=== PATIENT | female | born 1985 | race Two or more races ===

== ENCOUNTER 2024-12-27 14:14 | Inpatient (IN) | payer MEDICAID, OTHER ==
[~2024-12-27] VITALS: Ht 157.5 cm; Wt 71.7 kg
--- NOTE | 2024-12-27 14:57 | ED.PDOC ---
General HPI Comments This is a 39 year old female presenting to the ED with chief complaint of flank pain. Patient reports that she has been experiencing worsening left flank pain for the past 2-3 weeks. Patient relays that it is a 10/10 pain and she is having an associated headache. Patient denies any dysuria, hematuria, abdominal pain, N/V/D, fever, or chills. Chief Complaint: Abdominal Pain Time Seen by MD: 14:54 Primary Care Provider: FÁTIMA Sutton notes: Nurses Notes, Medications, Allergies Allergies: Coded Allergies: NO KNOWN ALLERGIES (Unverified , 12/27/24) Information Source: Patient Mode of Arrival: Ambulatory Severity: Moderate Inability to void: None Timing: Weeks Duration: Since onset Prehospital treatment: None Onset: Spontaneous Symptoms: None History of: None Location: (L)Flank Modifying factors: None associated signs and symptoms: Flank Pain Past Medical History PAST MEDICAL HISTORY: Asthma, GERD Surgical History: Denies all surgeries Family History Family History: Reviewed,noncontributory to illness, Family hx of DM Social History Smoker: Non-Smoker Alcohol: Denies ETOH Use Drugs: Denies Drug Use Lives In: Home Constitutional: denies: chills, diaphoresis, fatigue, fever, malaise, sweats, weakness, others EENTM: denies: blurred vision, double vision, ear bleeding, ear discharge, ear drainage, ear pain, ear ringing, eye pain, eye redness, hearing loss, mouth pain, mouth swelling, nasal discharge, nose bleeding, nose congestion, nose pain, photophobia, tearing, throat pain, throat swelling, voice changes, others Respiratory: denies: cough, hemoptysis, orthopnea, SOB at rest, shortness of breath, SOB with excertion, stridor, wheezing, others Cardiovascular: denies: chest pain, dizzy spells, diaphoresis, Dyspnea on exertion, edema, irregular heart beat, left arm pain, lightheadedness, palpitations, PND, syncope, others Gastrointestinal: reports: abdominal pain; denies: abdomen distended, blood str eaked bowels, constipated, diarrhea, dysphagia, difficulty swallowing, hematemesis, melena, nausea, poor appetite, poor fluid intake, rectal bleeding, rectal pain, vomiting, others Neurological: reports: headache; denies: dizziness, fainting, left sided numbness, left sided weakness, numbness, paresthesia, pre-existing deficit, right sided numbness, right sided weakness, seizure, speech problems, tingling, tremors, weakness, others Musculoskeletal: denies: back pain, gout, joint pain, joint swelling, muscle pain, muscle stiffness, neck pain, others Integumetry: denies: bruises, change in color, change in hair/nails, dryness, laceration, lesions, lumps, rash, wounds, others Allergic/Immunocompromised: denies: Difficulty Healing, Frequent Infections, Hives, Itching, others Hematologic/Lymphatic: denies: anemia, blood clots, easy bleeding, easy bruising, swollen glands, others Endocrine: denies: excessive hunger, excessive sweating, excessive thirst, excessive urination, flushing, intolerance to cold, intolerance to heat, unexplained weight gain, unexplained weight loss, others Psychiatric: denies: anxiety, bipolar disorder, depression, hopeless, panic disorder, schizophrenia, sleepless, suicidal, others All Other Systems: Reviewed and Negative Physical Exam General Appearance: Moderate Distress HEENT: Normal ENT Inspection, Pharynx Normal, TMs Normal Neck: Full Range of Motion, Non-Tender, Normal, Normal Inspection Respiratory: Chest Non-Tender, Lungs Clear, No Accessory Muscle Use, No Respiratory Distress, Normal Breath Sounds Cardiovascular: No Edema, No JVD, No Murmur, No Gallop, Normal Peripheral Pulses, Regular Rate/Rhythm Breast Exam: Deferred Gastrointestinal: LLQ, No Organomegaly, No Pulsatile Mass, Normal Bowel Sounds, Soft, Tenderness Genitalia: Deferred Pelvic: Deferred Rectal: Deferred Extremities: No calf tenderness, Normal capillary refill, Normal inspection, Normal range of motion, Non-tender, No pedal edema Musculoskeletal : Apperance: Normal Neurologic: Alert, 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 Was a procedure done?: No Differential Diagnosis Kidney stone (Female): Musculoskeletal pain, Pancreatitis, Pyelonephritis, Urolithiasis X-Ray, Labs, Meds, VS Vital Signs Date Time Temp Pulse Resp B/P (MAP) Pulse Ox O2 Delivery O2 Flow Rate FiO2 12/27/24 14:26 98.1 86 20 120/64 (82) 98 98.1 Lab Test 12/27/24 15:02 12/27/24 15:00 Range/Units White Blood Count 6.4 4.4-10.8 10^3/uL Red Blood Count 4.90 4.0-5.20 10^6/uL Hemoglobin 13.4 12.2-16.2 g/dL Hematocrit 39.4 36.0-46.0 % Mean Corpuscular Volume 80.4 80.0-100.0 fL Mean Corpuscular Hemoglobin 27.4 L 28.0-32.0 pg Mean Corpuscular Hemoglobin Concent 34.1 32.0-36.0 g/dL Red Cell Distribution Width 13.2 11.8-14.3 % Platelet Count 299 140-450 10^3/uL Mean Platelet Volume 7.6 6.9-10.8 fL Neutrophils (%) (Auto) 65.7 37.0-80.0 % Lymphocytes (%) (Auto) 27.5 10.0-50.0 % Monocytes (%) (Auto) 4.9 0.0-12.0 % Eosinophils (%) (Auto) 1.6 0.0-7.0 % Basophils (%) (Auto) 0.3 0.0-2.0 % Neutrophils # (Auto) 4.2 1.6-8.6 10 ^3/uL Lymphocytes # (Auto) 1.8 0.4-5.4 10 ^3/uL Monocytes # (Auto) 0.3 0-1.3 10 ^3/uL Eosinophils # (Auto) 0.1 0-0.8 10 ^3/uL Basophils # (Auto) 0 0-0.2 10 ^3/uL Nucleated Red Blood Cells 0.0 % Sodium Level 142 136-145 mmol/L Potassium Level 4.0 3.5-5.1 mmol/L Chloride Level 109 H 98-107 mmol/L Carbon Dioxide Level 26 20-31 mmol/L Anion Gap 7 5-15 Blood Urea Nitrogen 11 9-23 mg/dL Creatinine 0.73 0.550-1.02 mg/dL Glomerular Filtration Rate Calc 108 >90 mL/min BUN/Creatinine Ratio 15.1 10.0-20.0 Serum Glucose 89 74-106 mg/dL Calcium Level 10.1 8.7-10.4 mg/dL Urine Color Yellow Yellow Urine Clarity Turbid H Clear Urine pH 5.5 5.0-9.0 Urine Specific [place] 1.028 1.001-1.035 Urine Protein Negative Negative Urine Ketones Negative Negative Urine Blood 2+ H Negative /uL Urine Nitrite Negative Negative Urine Bilirubin Negative Negative Urine Urobilinogen Normal Negative mg/dL Urine Leukocyte Esterase 2+ Negative /uL Urine RBC 4 0 - 4 /hpf Urine Microscopic WBC 11 H 0-5 /HPF Urine Squamous Epithelial Cells Few <5 /hpf Urine Bacteria Few H None Seen /hpf Urine Mucus Few None Seen Urine Glucose Normal Normal mg/dL Urine Test Negative The patient's CBC is within limits The chemistry panel is within limits Urine test positive for a significant UTI The test is negative The CAT scan of the abdomen pelvis shows IMPRESSION: 1. Acute diverticulitis in the mid descending colon. There is no pericolonic fluid collection or free air. HS:Y This time, the patient is being admitted to the hospitalist The patient was given Toradol 30 mg IV push for the pain The patient was also given morphine for the pain The patient was given Zofran 4 mg IV push for the nausea The patient is being started on Flagyl 500 mg IV piggyback The patient is being admitted at this time Images Reviewed?: Images reviewed and evaluated by me Time of 1ST Reevaluation: 16:18 Reevaluation 1ST: Unchanged Patient Education/Counseling: Diagnosis, Treatment, Prognosis Family Education/Counseling: No Family Present Additional Information Reviewed patient's previous visit(s): None The following tests were ordered, and results were reviewed by me: CT Abd/Pel, UA, Preg urine, CBC, BMP Additional information was gathered from interviewing the following independent historian: NONE I reviewed and agreed with the following test results read by other provider: CT Abd/Pel I discussed treatments and results with medical personnel and: Patient Comprehensive systems review obtained and negative except for what is stated in the HPI. Departure 1 Departure Time of Disposition: 16:17 Impression: Primary Impression: Intractable abdominal pain Additional Impressions: UTI (urinary tract infection) Qualified Codes: N30.01 - Acute cystitis with hematuria Acute diverticulitis Disposition: ADMITTED INPATIENT Admit to: Med Surg Condition: Fair Critical Care Note Critical Care Time?: No Stability Stability form required: Yes Unstable for transfer: ED Physician Assesment (Clinical assesment) Heart Score Heart Score: Heart Score Response (Comments) Value History N/A 0 EKG N/A 0 Age N/A 0 Risk Factors N/A 0 Troponin N/A 0 Total 0 I personally scribed for JERE MYRICK MD ([email or web address]) on 12/27/24 at 14:57. E lectronically submitted by Shahid Cartagena ([email or web address]). JERE MYRICK MD Dec 27, 2024 14:57
[2024-12-27 15:13] LABS: Urine Bacteria FEW /hpf (None Seen); Urine Blood 2+ /uL (Negative); Urine Clarity Turbid (Clear); Urine Color Yellow (Yellow); Urine Mucus FEW (None Seen); Urine Protein, UAD Negative (Negative); Urine Specific Gravity 1.028 (1.001-1.035); Urine Squamous Epithelial Cell FEW /hpf (<5); Urine Urobilinogen Normal (Negative); Urine WBC 11 /HPF (0-5); Urine pH 5.5 (5.0-9.0)
[2024-12-27 15:18] LABS: Basophils # (auto) 0 10 ^3/uL (0-0.2); Basophils % (auto) 0.3 % (0.0-2.0); Eosinophils # (auto) 0.1 10 ^3/uL (0-0.8); Eosinophils % (auto) 1.6 % (0.0-7.0); Hematocrit 39.4 % (36.0-46.0); Hemoglobin 13.4 g/dL (12.2-16.2); Lymphocytes # (auto) 1.8 10 ^3/uL (0.4-5.4); Lymphocytes % (auto) 27.5 % (10.0-50.0); Mean Corpuscular Hemoglobin 27.4 pg (28.0-32.0); Mean Corpuscular Hgb Conc. 34.1 g/dL (32.0-36.0); Mean Corpuscular Volume 80.4 fL (80.0-100.0); Monocytes # (auto) 0.3 10 ^3/uL (0-1.3); Monocytes % (auto) 4.9 % (0.0-12.0); Neutrophils # (auto) 4.2 10 ^3/uL (1.6-8.6); Neutrophils % (auto) 65.7 % (37.0-80.0); Platelet Count (auto) 299 10^3/uL (140-450); Red Cell Distribution Width 13.2 % (11.8-14.3); White Blood Cell 6.4 10^3/uL (4.4-10.8)
[2024-12-27 15:27] LABS: Sodium 142 mmol/L (136-145)
[2024-12-27 15:28] LABS: Anion Gap 7 (5-15); Calcium 10.1 mg/dL (8.7-10.4); Carbon Dioxide 26 mmol/L (20-31)
[2024-12-27 15:33] LABS: BUN/Creatinine Ratio 15.1 (10.0-20.0); Blood Urea Nitrogen 11 mg/dL (9-23); Glucose 89 mg/dL (74-106)
[2024-12-27 15:34] LABS: Chloride 109 mmol/L (98-107)
--- NOTE | 2024-12-27 15:56 | DVH ---
CT ABDOMEN AND PELVIS WITHOUT CONTRAST CLINICAL HISTORY: Left flank pain TECHNIQUE: Multiple contiguous axial images of the abdomen and pelvis without intravenous contrast. T he images were reformatted degenerate coronal and sagittal reconstructions. All CT scans at this medical facility are performed using dose modulation techniques as appropriate t o a performed exam including the following:Automated exposure control was utilized; adjustment of the MA and/or KV according to patient size; and use of iterative reconstruction technique. Radiation Dose Information: CT Dose: CTDI volume is 6 mGy. Dose-length product is 337 mGy*cm Comparison: None FINDINGS: Evaluation of the abdomen and pelvis is limited without intravenous contrast. There is no evidence of nephrolithiasis or hydronephrosis. There is no evidence of a ureteral calculu s or hydroureter. The liver, gallbladder, pancreas, adrenal glands, and spleen appear within normal limits. There is no gross evidence of abdominal lymphadenopathy. There is no free fluid or free air. The stomach grossly appears unremarkable. The small and large bowel loops demonstrate normal caliber and distribution. A normal appearing appendix is seen in the right lower quadrant abdomen. There are multiple diverticula in the distal colon. There is mild fat stranding along the mid descending colon compatible with acute diverticulitis. There is no pericolonic fluid collection or free air. The abdominal aorta and IVC appear within normal limits. The bladder grossly appears unremarkable for the degree of distention. Pelvic organ appears within no rmal limits. There is no gross evidence of a pelvic mass. There is small amount of free fluid in the pelvis, probably physiologic. Lung bases are clear. There is no acute osseous abnormality. IMPRESSION: 1. Acute diverticulitis in the mid descending colon. There is no pericolonic fluid collection or free air. HS:Y
[2024-12-27] MEDS: SODIUM CHLORIDE 0.9% 1,000 ML IVB ONE (16:36)
[2024-12-27] MEDS: MORPHINE SULFATE 4 MG/ML SYR/VIAL IV ONE (16:36)
[2024-12-27] MEDS: ONDANSETRON HCL 4 MG/2 ML VIAL IV ONE ×2 (16:37→18:23)
[2024-12-27] MEDS: metroNIDAZOLE 500MG/100ML 100 ML IV ONE (16:37)
[2024-12-27] MEDS: KETOROLAC TROMETH 30 MG/ML 1ML VIAL IV ONE (16:37)
[2024-12-27] MEDS: HYDROmorphone HCL 2 MG/ML VL/or syr IV ONE (18:25)
[2024-12-27] MEDS: ACETAMINOPHEN 325 MG TAB PO ONE (22:15)
[2024-12-27 22:39] LABS: Triglycerides 115 mg/dL (< 150)
[2024-12-27 22:40] LABS: Amphetamine Screen, Urine Neg (NEGATIVE); Barbiturate Scree,Urine Neg (NEGATIVE); Benzodiazephine Screen, Urine Neg (NEGATIVE); Cannabinoid Screen, Urine Neg (NEGATIVE); Cocaine Screen, Urine Neg (NEGATIVE); Opiate Scree,Urine Neg (NEGATIVE); Phencyclidine Screen, Urine Neg (NEGATIVE)
[2024-12-27 22:41] LABS: Cholesterol 200 mg/dL (< 200); HDL Cholesterol 45 mg/dL (40-59)
[2024-12-27 22:51] LABS: LDL Cholesterol 136 mg/dL (< 100)
--- NOTE | 2024-12-27 23:29 | DVH ---
INDICATION: R/O ectopic or any problem with ovaries TECHNIQUE: Multiple real-time grayscale transabdominal and transvaginal sonographic images along with color and duplex Doppler of the uterus and ovaries were obtained. COMPARISON: None FINDINGS: The uterus measures 7.7 x 4.9 x 3.9 cm. The endometrial stripe measures 0.5 cm. Multiple ut erine fibroids are identified, the largest of which measures 1.5 x 1.3 x 1.1 cm. Moderate pelvic cul-de-sac free fluid. Right ovary measures 2.8 x 2.1 x 2.0 cm with normal Doppler color flow. Anechoic cystic structure linsey sures 1.4 x 1.1 x 1.0 cm. Left ovary measures 3.0 x 2.1 x 1.9 cm with normal Doppler color flow. Anechoic cystic structure linsey sures 1.0 x 0.8 x 0.8 cm. IMPRESSION: 1. Multiple uterine fibroids. 2. Pelvic cul-de-sac free fluid. 3. Simple appearing bilateral ovarian cysts.
[2024-12-28] VITALS (7 sets, daily range): BP systolic 82–113; BP diastolic 51–81; PULSE 65–97; RESP 15–20; TEMP 97.8–98.4; O2SAT 97–99
--- NOTE | 2024-12-28 00:34 | DVHHPRES ---
History of Present Illness Resident Creating Document: LUIS ROSA History of Present Illness This is a 39-year-old female past medical history of asthma, GERD, uterine fibroids who presented to the ED with severe left lower quadrant abdominal tenderness. Patient stated the pain started three weeks ago but was tolerable in intensity and she thought that it was related to the menstrual periods. The patient stated that the pain progressively got worse associated with fever, nausea and vomiting with alternating diarrhea and constipation prompted the visit to the ED. the patient described the pain as a sharp stabbing pain located in the left lower quadrant rated as a 10/10 on the pain scale that occasionally radiates to the right lower quadrant. The patient denies chest pain, shortness of breath, lower extremity swelling, headache or any other symptoms. Upon admission, initial CBC and CMP was grossly unremarkable but urinalysis came back positive suggesting UTI. Beta human chorionic gonadotropin test came back negative. A CT scan of the abdomen showed findings consistent with acute diverticulitis of the mid descending colon with no fluid collection or free air. We will start the patient on IV ciprofloxacin and metronidazole as well as IV fluids and placing the patient NPO. We will admit the patient for further assessment and management. Past medical history: GERD, asthma, uterine fibroids Home Medications: None Surgical history: Denies Social history: Denies alcohol, drug or smoking Pulmonary: Asthma GI: GERD Past Surgical History: None Family History: None Smoke: No ALCOHOL: none Drugs: None Lives: with Family Domestic Violence: Neg Review of Systems Constitutional: Yes: Fever; No: Chills, Sweats, Weakness, Malaise, Other Eyes: No: Pain, Vision change, Conjunctivae inflammation, Eyelid inflammation, Other, Redness ENT: No: Ear pain, Ear discharge, Nose pain, Nose discharge, Nose congestion, Mouth pain, Mouth swelling, Throat pain, Throat swelling, Other Respiratory: No: Cough, Dry, Shortness of breath, SOB with excertion, Wheezing, Hemoptysis, Pleuritic Pain, Sputum, Wheezing, Other Cardiovascular: No: Chest Pain, Palpitations, Orthopnea, Paroxysmal Noc. Dyspnea, Edema, Lt Headedness, Other Gastrointestinal: Nausea, Vomiting, Abdominal Pain, Diarrhea, Constipation; No: Melena, Hematochezia, Other Genitourinary: No Dysuria, No Frequency, No Incontinence, No Hematuria, No Retention, No Other Musculoskeletal: No: other, neck pain, shoulder pain, arm pain, back pain, hand pain, leg pain, foot pain Skin: No: Rash, Lesions, Jaundice, Bruising, Other Neurological: No: Weakness, Numbness, Incoordination, Change in speech, Confusion, Seizures, Other Allergies: Coded Allergies: NO KNOWN ALLERGIES (Unverified , 12/27/24) Medications Current Medications Medications Dose Ordered Sig/Hood Route Start Time Stop Time Status Last Admin Dose Admin Sodium Chloride 1,000 ml @ 60 mls/hr [id number] IV 12/27/24 22:15 Acetaminophen 650 mg Q6HP PRN PO 12/27/24 22:15 Ciprofloxacin 200 ml @ 200 mls/hr Q12HR IV 12/27/24 22:15 Metronidazole 100 ml @ 100 mls/hr Q8HR IV 12/27/24 22:15 Exam Vital Signs Vital Signs Date Time Temp Pulse Resp B/P (MAP) Pulse Ox O2 Delivery O2 Flow Rate FiO2 12/27/24 22:00 97.4 70 18 116/68 (84) 98 97.4 12/27/24 16:37 Room Air General Appearance: Alert, Oriented X3, Cooperative, moderate distress HEENT: Atraumatic, PERRLA, EOMI, Mucous membr. moist/pink Respiratory: Clear to auscultation, Normal air movement Cardiovascular: Regular rate, Normal S1, Normal S2, No murmurs Abdominal: Normal bowel sounds, Soft, Other (There is significant left lower quadrant pain.) Extremities: No clubbing, No cyanosis, No edema, Normal pulses Skin: No rashes, No breakdown, No significant lesion Neuro: Normal gait, Normal speech, Strength at 5/5 X4 ext, Normal tone, Sensation intact, Cranial nerves 3-12 NL, Reflexes 2+ Psych/Mental Status: Mental status NL, Mood NL Labs/Xrays Labs Test 12/27/24 15:02 12/27/24 15:00 Range/Units White Blood Count 6.4 4.4-10.8 10^3/uL Red Blood Count 4.90 4.0-5.20 10^6/uL Hemoglobin 13.4 12.2-16.2 g/dL Hematocrit 39.4 36.0-46.0 % Mean Corpuscular Volume 80.4 80.0-100.0 fL Mean Corpuscular Hemoglobin 27.4 L 28.0-32.0 pg Mean Corpuscular Hemoglobin Concent 34.1 32.0-36.0 g/dL Red Cell Distribution Width 13.2 11.8-14.3 % Platelet Count 299 140-450 10^3/uL Mean Platelet Volume 7.6 6.9-10.8 fL Neutrophils (%) (Auto) 65.7 37.0-80.0 % Lymphocytes (%) (Auto) 27.5 10.0-50.0 % Monocytes (%) (Auto) 4.9 0.0-12.0 % Eosinophils (%) (Auto) 1.6 0.0-7.0 % Basophils (%) (Auto) 0.3 0.0-2.0 % Neutrophils # (Auto) 4.2 1.6-8.6 10 ^3/uL Lymphocytes # (Auto) 1.8 0.4-5.4 10 ^3/uL Monocytes # (Auto) 0.3 0-1.3 10 ^3/uL Eosinophils # (Auto) 0.1 0-0.8 10 ^3/uL Basophils # (Auto) 0 0-0.2 10 ^3/uL Nucleated Red Blood Cells 0.0 % Sodium Level 142 136-145 mmol/L Potassium Level 4.0 3.5-5.1 mmol/L Chloride Level 109 H 98-107 mmol/L Carbon Dioxide Level 26 20-31 mmol/L Anion Gap 7 5-15 Blood Urea Nitrogen 11 9-23 mg/dL Creatinine 0.73 0.550-1.02 mg/dL Glomerular Filtration Rate Calc 108 >90 mL/min BUN/Creatinine Ratio 15.1 10.0-20.0 Serum Glucose 89 74-106 mg/dL Hemoglobin A1c 5.0 <5.7 % A1C Calcium Level 10.1 8.7-10.4 mg/dL Triglycerides Level 115 < 150 mg/dL Cholesterol Level 200 H < 200 mg/dL LDL Cholesterol 136 H < 100 mg/dL HDL Cholesterol 45 40-59 mg/dL Beta HCG, Quantitative 0.5 L 1.5-4.2 mIU/mL Urine Color Yellow Yellow Urine Clarity Turbid H Clear Urine pH 5.5 5.0-9.0 Urine Specific [place] 1.028 1.001-1.035 Urine Protein Negative Negative Urine Ketones Negative Negative Urine Blood 2+ H Negative /uL Urine Nitrite Negative Negative Urine Bilirubin Negative Negative Urine Urobilinogen Normal Negative mg/dL Urine Leukocyte Esterase 2+ Negative /uL Urine RBC 4 0 - 4 /hpf Urine Microscopic WBC 11 H 0-5 /HPF Urine Squamous Epithelial Cells Few <5 /hpf Urine Bacteria Few H None Seen /hpf Urine Mucus Few None Seen Urine Glucose Normal Normal mg/dL Urine Test Negative Urine Opiates Screen Neg NEGATIVE Urine Fentanyl Screen Neg NEGATIVE Urine Barbiturates Screen Neg NEGATIVE Urine Phencyclidine Screen Neg NEGATIVE Urine Amphetamines Screen Neg NEGATIVE Urine Benzodiazepines Screen Neg NEGATIVE Urine Cocaine Screen Neg NEGATIVE Urine Cannabinoids Screen Neg NEGATIVE Assessment/Plan Assessment/Plan Assessment/plan Acute left lower quadrant tenderness likely due to acute diverticulitis Acute diverticulitis of the mid descending colon Ruled out ectopic UTI GERD Asthma, controlled History of uterine fibroids Plan -CT of the abdomen showed acute diverticulitis in the mid descending colon with no fluid collection or free air -start IV fluid bolus NS 0.9% 1 L and continue at 60 cc/hour -start IV ciprofloxacin -start IV metronidazole -place patient NPO -ketorolac and acetaminophen pain modulation Goals of care discussed with the patient at bedside for >35min, FULL CODE Plan discussed with Dr. Perry Plan discussed with: Patient My Orders Orders - LUIS ROSA Procedure Category Date Status Time Pelvic US 12/27/24 Resulted 22:01 Admit ADMIT 12/27/24 Transmitted 22:02 Code Status CODE 12/27/24 Transmitted 22:02 Vital Signs MONY 12/27/24 In Process 22:02 Review Orders With MONY 12/27/24 In Process Adm. 22:02 Maintain Bed Rest MONY 12/27/24 In Process 22:02 Npo (Nothing By DIET 12/28/24 Transmitted Mouth) Diet Breakfast Sodium Chloride 0.9% PHA 12/27/24 In Process 22:15 Acetaminophen Tablet PHA 12/27/24 In Process (Tylenol Tablet) 22:15 Notify Of Changes MONY 12/27/24 In Process From Base 22:02 Advance Directive MONY 12/27/24 In Process 22:02 Basic Metabolic Panel LAB 12/28/24 Verified 04:00 Complete Blood Count LAB 12/28/24 Verified 04:00 Patient Condition ORDERS 12/27/24 Transmitted 22:02 Allergies MONY 12/27/24 In Process 22:02 Ciprofloxacin PHA 12/27/24 In Process 400mg/200ml (Cipro Iv) 22:15 Metronidazole PHA 12/27/24 In Process 500mg/100ml (Flagyl 22:15 Transvaginal Us Non Ob US 12/27/24 Taken 23:15 Date of Service: Dec 27, 2024 Billing Provider: RAVI PERRY MD Common Visit Codes: 16176-YUYCYOT INP/OBS CARE (HIGH) Secondary Visit Codes: 12178-MQIWFBUI CARE PLAN 30 MINUTES LUIS ROSA RESIDENT Dec 28, 2024 00:34
[2024-12-28] MEDS: KETOROLAC TROMETH 30 MG/ML 1ML VIAL IV ONE (00:56)
[2024-12-28] MEDS: CIPROFLOXACIN 400MG/200ML 200 ML IV SCH (01:02)
[2024-12-28] MEDS: SODIUM CHLORIDE 0.9% 1,000 ML IV SCH ×2 (01:03→14:00)
[2024-12-28] MEDS: metroNIDAZOLE 500MG/100ML 100 ML IV SCH (02:24)
[2024-12-28] MEDS ORDERED: FLUT250M2 IN (02:38)
[2024-12-28 07:18] LABS: Basophils # (auto) 0 10 ^3/uL (0-0.2); Basophils % (auto) 0.1 % (0.0-2.0); Eosinophils # (auto) 0.2 10 ^3/uL (0-0.8); Eosinophils % (auto) 3.2 % (0.0-7.0); Hematocrit 34.8 % (36.0-46.0); Hemoglobin 11.9 g/dL (12.2-16.2); Lymphocytes % (auto) 33.5 % (10.0-50.0); Mean Corpuscular Hemoglobin 27.6 pg (28.0-32.0); Mean Corpuscular Hgb Conc. 34.2 g/dL (32.0-36.0); Mean Corpuscular Volume 80.6 fL (80.0-100.0); Monocytes # (auto) 0.5 10 ^3/uL (0-1.3); Monocytes % (auto) 7.7 % (0.0-12.0); Neutrophils # (auto) 3.4 10 ^3/uL (1.6-8.6); Neutrophils % (auto) 55.5 % (37.0-80.0); Nucleated Red Blood Cells % 0.1 %; Platelet Count (auto) 255 10^3/uL (140-450); Red Blood Cells 4.31 10^6/uL (4.0-5.20); Red Cell Distribution Width 13.1 % (11.8-14.3); White Blood Cell 6.1 10^3/uL (4.4-10.8)
[2024-12-28 07:29] LABS: Potassium 3.7 mmol/L (3.5-5.1); Sodium 143 mmol/L (136-145)
[2024-12-28 07:30] LABS: Anion Gap 11 (5-15); Calcium 9.4 mg/dL (8.7-10.4); Carbon Dioxide 24 mmol/L (20-31)
[2024-12-28 07:32] LABS: Chloride 108 mmol/L (98-107)
[2024-12-28 07:35] LABS: BUN/Creatinine Ratio 18.2 (10.0-20.0); Blood Urea Nitrogen 14 mg/dL (9-23); Glucose 83 mg/dL (74-106)
[2024-12-28] MEDS: SODIUM CHLORIDE 0.9% 1,000 ML IV ONE ×2 (08:30→10:45)
[2024-12-28] MEDS: PANTOPRAZOLE 40 MG/10 ML VIAL INJ IV ONE (11:00)
[2024-12-28 11:34] LABS: Hematocrit 33.2 % (36.0-46.0); Hemoglobin 11.2 g/dL (12.2-16.2)
[2024-12-28] MEDS ORDERED: MORPHINE SULFATE INJ 2 MG/ml SYRG IV PRN ×2 (12:45)
[2024-12-28] MEDS: ONDANSETRON HCL 4 MG/2 ML VIAL IV PRN (14:15)
[2024-12-28] MEDS ORDERED: MORPHINE SULFATE 4 MG/ML SYR/VIAL IV PRN (15:00)
[2024-12-28] MEDS: MORPHINE SULFATE 4 MG/ML SYR/VIAL IV PRN ×2 (15:06→22:09)
--- NOTE | 2024-12-28 16:15 | DVHPN2 ---
Subjective better Reviewed: Care Plan, H&P, Labs, Medications, Previous Orders, Radiology Changes from previous H/P or p: No Changes Objective Vitals Vital Signs Date Time Temp Pulse Resp B/P (MAP) Pulse Ox O2 Delivery O2 Flow Rate FiO2 12/28/24 15:06 72 18 106/76 12/28/24 13:00 98.1 99 98.1 12/28/24 02:15 Room Air* 0 21 Intake/Output Intake and Output 12/28/24 07:00 Intake Total 1500 ml Output Total 0 ml Balance 1500 ml Intake Oral 0 ml IV Total 1500 ml Output Urine Total 0 ml General Appearance: Alert, Oriented X3, Cooperative, No acute distress HEENT: Atraumatic Lungs: Clear to auscultation Cardiovascular: Regular rate Abdomen: Normal bowel sounds, Other (Tenderness in the left lower quadrant) Medications Current Medications Medications Dose Ordered Sig/Hood Route Start Time Stop Time Status Last Admin Dose Admin Acetaminophen 650 mg Q6HP PRN PO 12/27/24 22:15 Ciprofloxacin 200 ml @ 200 mls/hr Q12HR IV 12/27/24 22:15 12/28/24 09:40 200 MLS/HR Metronidazole 100 ml @ 100 mls/hr Q8HR IV 12/27/24 22:15 12/28/24 14:15 100 MLS/HR Sodium Chloride 1,000 ml @ 125 mls/hr Q8H IV 12/28/24 10:45 12/28/24 14:00 125 MLS/HR Pantoprazole Sodium 40 mg DAILY IV 12/29/24 10:00 Ondansetron HCl 4 mg Q4HPRN PRN IV 12/28/24 12:45 12/28/24 14:15 4 MG Morphine Sulfate 2 mg Q6HPRN PRN IV 12/28/24 12:45 Morphine Sulfate 1 mg Q6HPRN PRN IV 12/28/24 15:00 12/28/24 15:06 1 MG Laboratory Results Laboratory Tests 12/28/24 05:29 12/28/24 11:16 Chemistry Test 12/28/24 05:29 Calcium Level 9.4 mg/dL (8.7-10.4) Urinalysis Test 12/27/24 15:00 Urine Color Yellow (Yellow) Urine Clarity Turbid (Clear) H Urine pH 5.5 (5.0-9.0) Urine Specific [place] 1.028 (1.001-1.035) Urine Protein Negative (Negative) Urine Ketones Negative (Negative) Urine Blood 2+ /uL (Negative) H Urine Nitrite Negative (Negative) Urine Bilirubin Negative (Negative) Urine Urobilinogen Normal mg/dL (Negative) Urine Leukocyte Esterase 2+ /uL (Negative) Urine RBC 4 /hpf (0 - 4) Urine Microscopic WBC 11 /HPF (0-5) H Urine Squamous Epithelial Cells Few /hpf (<5) Urine Bacteria Few /hpf (None Seen) H Urine Mucus Few (None Seen) Urine Glucose Normal mg/dL (Normal) Urine Test Negative Assessment/Plan Assessment/Plan Acute diverticulitis Abdominal pain secondary to above UTI Hypotension GERD Anemia Bilateral ovarian cysts Uterine fibroid Asthma Plan: IV fluids. H&H. CBC. Continue current plan of care. Plan discussed with: Patient, Other (Nursing) My Orders Orders - RICARDO TENORIO MD Procedure Category Date Status Time Sodium Chloride 0.9% PHA 12/28/24 In Process 10:45 Hemoglobin & LAB 12/28/24 Logged Hematocrit 16:46 Hemoglobin & LAB 12/28/24 Logged Hematocrit 22:46 Pantoprazole PHA 12/29/24 In Process (Protonix) 10:00 Complete Blood Count LAB 12/29/24 Verified 06:00 Ondansetron Hcl PHA 12/28/24 In Process (Zofran) 12:45 Morphine Sulfate PHA 12/28/24 In Process Injection 12:45 Morphine Sulfate PHA 12/28/24 In Process Injection 15:00 Date of Service: Dec 28, 2024 Billing Provider: RICARDO TENORIO MD Common Visit Codes: 59302-[id number] INP/OBS CARE(HIGH) RICARDO TENORIO MD Dec 28, 2024 16:15
[2024-12-28 16:44] LABS: Hematocrit 32.9 % (36.0-46.0); Hemoglobin 11.2 g/dL (12.2-16.2)
[2024-12-28 22:38] LABS: Hematocrit 31.3 % (36.0-46.0); Hemoglobin 10.9 g/dL (12.2-16.2)
[2024-12-29] VITALS (8 sets, daily range): BP systolic 102–114; BP diastolic 64–77; PULSE 55–75; RESP 16–18; TEMP 97.8–98.2; O2SAT 97–98
[2024-12-29 05:30] LABS: Basophils # (auto) 0 10 ^3/uL (0-0.2); Basophils % (auto) 0.1 % (0.0-2.0); Eosinophils # (auto) 0.2 10 ^3/uL (0-0.8); Eosinophils % (auto) 3.8 % (0.0-7.0); Hematocrit 30.9 % (36.0-46.0); Hemoglobin 10.6 g/dL (12.2-16.2); Lymphocytes # (auto) 1.8 10 ^3/uL (0.4-5.4); Lymphocytes % (auto) 40.6 % (10.0-50.0); Mean Corpuscular Hemoglobin 27.6 pg (28.0-32.0); Mean Corpuscular Hgb Conc. 34.2 g/dL (32.0-36.0); Mean Corpuscular Volume 80.5 fL (80.0-100.0); Monocytes # (auto) 0.4 10 ^3/uL (0-1.3); Monocytes % (auto) 8.4 % (0.0-12.0); Neutrophils % (auto) 47.1 % (37.0-80.0); Platelet Count (auto) 215 10^3/uL (140-450); Red Blood Cells 3.83 10^6/uL (4.0-5.20); White Blood Cell 4.3 10^3/uL (4.4-10.8)
[2024-12-29] MEDS: PANTOPRAZOLE 40 MG/10 ML VIAL INJ IV SCH (09:06)
[2024-12-29] MEDS: HYDROcodone-ACET 5/325MG TAB PO PRN (15:02)
--- NOTE | 2024-12-29 15:23 | DVHPN2 ---
Subjective better Reviewed: Care Plan, H&P, Labs, Medications, Previous Orders, Radiology Changes from previous H/P or p: No Changes Objective Vitals Vital Signs Date Time Temp Pulse Resp B/P (MAP) Pulse Ox O2 Delivery O2 Flow Rate FiO2 12/29/24 13:00 98.1 75 18 107/74 (85) 98 98.1 12/29/24 08:00 Room Air* 0 21 Intake/Output Intake and Output 12/29/24 07:00 Intake Total 400 ml Output Total 2 ml Balance 398 ml Intake Oral 0 ml IV Total 400 ml Output Urine Total 0 ml Stool Total 2 ml # Voids 7 General Appearance: Alert, Oriented X3, Cooperative, No acute distress HEENT: Atraumatic Lungs: Clear to auscultation Cardiovascular: Regular rate Abdomen: Normal bowel sounds, Other (Still some Tenderness in the left lower quadrant) Medications Current Medications Medications Dose Ordered Sig/Hood Route Start Time Stop Time Status Last Admin Dose Admin Acetaminophen 650 mg Q6HP PRN PO 12/27/24 22:15 Ciprofloxacin 200 ml @ 200 mls/hr Q12HR IV 12/27/24 22:15 12/29/24 09:06 200 MLS/HR Metronidazole 100 ml @ 100 mls/hr Q8HR IV 12/27/24 22:15 12/29/24 13:42 100 MLS/HR Sodium Chloride 1,000 ml @ 125 mls/hr Q8H IV 12/28/24 10:45 12/29/24 03:29 125 MLS/HR Pantoprazole Sodium 40 mg DAILY IV 12/29/24 10:00 12/29/24 09:06 40 MG Ondansetron HCl 4 mg Q4HPRN PRN IV 12/28/24 12:45 12/29/24 09:06 4 MG Morphine Sulfate 1 mg Q6HPRN PRN IV 12/28/24 15:00 Hold 12/29/24 09:08 1 MG Morphine Sulfate 2 mg Q6HPRN PRN IV 12/28/24 19:30 12/28/24 22:09 2 MG Acetaminophen/ Hydrocodone Bitart 1 tab Q4HPRN PRN PO 12/29/24 14:30 12/29/24 15:02 1 TAB Laboratory Results Laboratory Tests 12/28/24 05:29 12/29/24 05:00 Urinalysis Test 12/27/24 15:00 Urine Color Yellow (Yellow) Urine Clarity Turbid (Clear) H Urine pH 5.5 (5.0-9.0) Urine Specific [place] 1.028 (1.001-1.035) Urine Protein Negative (Negative) Urine Ketones Negative (Negative) Urine Blood 2+ /uL (Negative) H Urine Nitrite Negative (Negative) Urine Bilirubin Negative (Negative) Urine Urobilinogen Normal mg/dL (Negative) Urine Leukocyte Esterase 2+ /uL (Negative) Urine RBC 4 /hpf (0 - 4) Urine Microscopic WBC 11 /HPF (0-5) H Urine Squamous Epithelial Cells Few /hpf (<5) Urine Bacteria Few /hpf (None Seen) H Urine Mucus Few (None Seen) Urine Glucose Normal mg/dL (Normal) Urine Test Negative Assessment/Plan Assessment/Plan Acute diverticulitis Abdominal pain secondary to above UTI Hypotension GERD Anemia Bilateral ovarian cysts Uterine fibroid Asthma Plan: 12/28/2024: IV fluids. H&H. CBC. Continue current plan of care. 12/29/2024: Continue IV fluid and IV antibiotics. Clear liquid NPO medications. Possibly home soon if improvement and stable Plan discussed with: Patient, Other (Nursing) My Orders Orders - RICARDO TENORIO MD Procedure Category Date Status Time Morphine Sulfate PHA 12/28/24 In Process Injection 19:30 Hydrocodone-Acet PHA 12/29/24 In Process 5/325mg Tab ([place] 14:30 Clear Liq Diet DIET 12/29/24 Transmitted Dinner Date of Service: Dec 29, 2024 Billing Provider: RICARDO TENORIO MD Common Visit Codes: [id number] INP/OBS CARE(HIGH) RICARDO TENORIO MD Dec 29, 2024 15:23
[2024-12-30] VITALS (8 sets, daily range): BP systolic 99–113; BP diastolic 53–74; PULSE 60–77; RESP 16–20; TEMP 97.9–98.3; O2SAT 96–99
[2024-12-30] MEDS: SODIUM CHLORIDE 0.9% 1,000 ML IV SCH (14:15)
--- NOTE | 2024-12-30 14:19 | DVHPN2 ---
Subjective Patient continues to report having left lower quadrant and periumbilical pain Reviewed: Care Plan, H&P, Labs, Medications, Previous Orders, Radiology Changes from previous H/P or p: No Changes Objective Vitals Vital Signs Date Time Temp Pulse Resp B/P (MAP) Pulse Ox O2 Delivery O2 Flow Rate FiO2 12/30/24 09:00 98.3 62 17 105/68 (80) 99 98.3 12/30/24 08:00 Room Air* 0 21 Intake/Output Intake and Output 12/30/24 07:00 Intake Total 3425 ml Balance 3425 ml Intake Oral 700 ml IV Total 2725 ml # Voids 6 # Bowel Movements 2 General Appearance: Alert, Oriented X3, Cooperative, No acute distress HEENT: Atraumatic Lungs: Clear to auscultation Cardiovascular: Regular rate Abdomen: Normal bowel sounds, Other (Still some Tenderness in the left lower quadrant) Neuro: Normal speech Skin: Dry, Intact Psych/Mental Status: Mental status NL, Mood NL Medications Current Medications Medications Dose Ordered Sig/Hood Route Start Time Stop Time Status Last Admin Dose Admin Acetaminophen 650 mg Q6HP PRN PO 12/27/24 22:15 Ciprofloxacin 200 ml @ 200 mls/hr Q12HR IV 12/27/24 22:15 12/30/24 09:46 200 MLS/HR Metronidazole 100 ml @ 100 mls/hr Q8HR IV 12/27/24 22:15 12/30/24 13:40 100 MLS/HR Sodium Chloride 1,000 ml @ 125 mls/hr Q8H IV 12/28/24 10:45 12/30/24 05:50 125 MLS/HR Pantoprazole Sodium 40 mg DAILY IV 12/29/24 10:00 12/30/24 09:47 40 MG Ondansetron HCl 4 mg Q4HPRN PRN IV 12/28/24 12:45 12/29/24 09:06 4 MG Morphine Sulfate 1 mg Q6HPRN PRN IV 12/28/24 15:00 Hold 12/29/24 09:08 1 MG Morphine Sulfate 2 mg Q6HPRN PRN IV 12/28/24 19:30 12/30/24 02:32 2 MG Acetaminophen/ Hydrocodone Bitart 1 tab Q4HPRN PRN PO 12/29/24 14:30 12/30/24 09:47 1 TAB Laboratory Results Laboratory Tests 12/28/24 05:29 12/29/24 05:00 Urinalysis Test 12/27/24 15:00 Urine Color Yellow (Yellow) Urine Clarity Turbid (Clear) H Urine pH 5.5 (5.0-9.0) Urine Specific [place] 1.028 (1.001-1.035) Urine Protein Negative (Negative) Urine Ketones Negative (Negative) Urine Blood 2+ /uL (Negative) H Urine Nitrite Negative (Negative) Urine Bilirubin Negative (Negative) Urine Urobilinogen Normal mg/dL (Negative) Urine Leukocyte Esterase 2+ /uL (Negative) Urine RBC 4 /hpf (0 - 4) Urine Microscopic WBC 11 /HPF (0-5) H Urine Squamous Epithelial Cells Few /hpf (<5) Urine Bacteria Few /hpf (None Seen) H Urine Mucus Few (None Seen) Urine Glucose Normal mg/dL (Normal) Urine Test Negative Labs and/or images reviewed: Labs reviewed by me, Image(s) reviewed by me Assessment/Plan Assessment/Plan Impression: -acute diverticulitis -UTI -GERD -anemia Plan: -patient continues to have abdominal pain, requiring oral and IV pain medication. Patient reports having diarrhea, as well as persistent nausea. Tolerating clear liquid diet at this time. -continue antibiotic therapy with Cipro and Flagyl -pain management: Increase [place] to 7.5/325 q.4 hours -repeat labs in a.m. -reassess for discharge in a.m. -advanced to mechanical soft diet Total time spent with patient discussing and formulating plan of care: 35 minutes. This medical document was created using an electronic medical record system with [employer] dictation system. Although this document has been carefully reviewed, there may still be some phonetic and typographical errors. These areas are purely typographical due to imperfections of the software programs, and do not reflect any compromise in the patient's medical care. Plan discussed with: Patient, Other (RN) Date of Service: Dec 30, 2024 Billing Provider: KYLE FAN NP Common Visit Codes: [id number] INP/OBS CARE(HIGH) KYLE FAN NP Dec 30, 2024 14:19
[2024-12-30] MEDS: HYDROcodone-ACET 7.5/325MG TAB PO PRN (15:36)
[2024-12-31] VITALS (8 sets, daily range): BP systolic 95–124; BP diastolic 54–89; PULSE 59–85; RESP 15–20; TEMP 97.4–98; O2SAT 96–98
[2024-12-31 05:41] LABS: Basophils # (auto) 0 10 ^3/uL (0-0.2); Basophils % (auto) 0.3 % (0.0-2.0); Eosinophils # (auto) 0.2 10 ^3/uL (0-0.8); Eosinophils % (auto) 5.4 % (0.0-7.0); Hemoglobin 11.2 g/dL (12.2-16.2); Lymphocytes # (auto) 1.9 10 ^3/uL (0.4-5.4); Lymphocytes % (auto) 41.7 % (10.0-50.0); Mean Corpuscular Hemoglobin 28.1 pg (28.0-32.0); Mean Corpuscular Hgb Conc. 35.1 g/dL (32.0-36.0); Mean Corpuscular Volume 79.9 fL (80.0-100.0); Monocytes # (auto) 0.4 10 ^3/uL (0-1.3); Monocytes % (auto) 9.1 % (0.0-12.0); Neutrophils % (auto) 43.5 % (37.0-80.0); Nucleated Red Blood Cells % 0.1 %; Platelet Count (auto) 228 10^3/uL (140-450); Red Blood Cells 4.01 10^6/uL (4.0-5.20); Red Cell Distribution Width 13.2 % (11.8-14.3); White Blood Cell 4.5 10^3/uL (4.4-10.8)
--- NOTE | 2024-12-31 10:33 | DVHPN2 ---
Subjective Patient continues to report having left lower quadrant and periumbilical pain Reviewed: Care Plan, H&P, Labs, Medications, Previous Orders, Radiology Changes from previous H/P or p: No Changes Objective Vitals Vital Signs Date Time Temp Pulse Resp B/P (MAP) Pulse Ox O2 Delivery O2 Flow Rate FiO2 12/31/24 08:00 16 Room Air* 0 21 12/31/24 05:00 97.7 60 95/58 (70) 98 97.7 Intake/Output Intake and Output 12/31/24 07:00 Intake Total 3170 ml Balance 3170 ml Intake Oral 2250 ml IV Total 920 ml # Voids 6 # Bowel Movements 2 General Appearance: Alert, Oriented X3, Cooperative, No acute distress HEENT: Atraumatic Lungs: Clear to auscultation Cardiovascular: Regular rate Abdomen: Normal bowel sounds, Other (Still some Tenderness in the left lower quadrant) Neuro: Normal speech Skin: Dry, Intact Psych/Mental Status: Mental status NL, Mood NL Medications Current Medications Medications Dose Ordered Sig/Hood Route Start Time Stop Time Status Last Admin Dose Admin Acetaminophen 650 mg Q6HP PRN PO 12/27/24 22:15 Ciprofloxacin 200 ml @ 200 mls/hr Q12HR IV 12/27/24 22:15 12/31/24 09:54 200 MLS/HR Metronidazole 100 ml @ 100 mls/hr Q8HR IV 12/27/24 22:15 12/31/24 05:48 100 MLS/HR Pantoprazole Sodium 40 mg DAILY IV 12/29/24 10:00 12/31/24 09:54 40 MG Ondansetron HCl 4 mg Q4HPRN PRN IV 12/28/24 12:45 12/30/24 20:40 4 MG Morphine Sulfate 1 mg Q6HPRN PRN IV 12/28/24 15:00 Hold 12/29/24 09:08 1 MG Morphine Sulfate 2 mg Q6HPRN PRN IV 12/28/24 19:30 12/30/24 02:32 2 MG Sodium Chloride 1,000 ml @ 75 mls/hr [id number] IV 12/30/24 14:15 12/31/24 04:06 75 MLS/HR Acetaminophen/ Hydrocodone Bitart 1 tab Q4HP PRN PO 12/30/24 14:15 12/30/24 20:41 1 TAB Temazepam 15 mg HSPRN PRN PO 12/31/24 10:30 UNV Laboratory Results Laboratory Tests 12/28/24 05:29 12/31/24 05:19 Urinalysis Test 12/27/24 15:00 Urine Color Yellow (Yellow) Urine Clarity Turbid (Clear) H Urine pH 5.5 (5.0-9.0) Urine Specific [place] 1.028 (1.001-1.035) Urine Protein Negative (Negative) Urine Ketones Negative (Negative) Urine Blood 2+ /uL (Negative) H Urine Nitrite Negative (Negative) Urine Bilirubin Negative (Negative) Urine Urobilinogen Normal mg/dL (Negative) Urine Leukocyte Esterase 2+ /uL (Negative) Urine RBC 4 /hpf (0 - 4) Urine Microscopic WBC 11 /HPF (0-5) H Urine Squamous Epithelial Cells Few /hpf (<5) Urine Bacteria Few /hpf (None Seen) H Urine Mucus Few (None Seen) Urine Glucose Normal mg/dL (Normal) Urine Test Negative Labs and/or images reviewed: Labs reviewed by me, Image(s) reviewed by me Assessment/Plan Assessment/Plan Impression: -acute diverticulitis -UTI -GERD -anemia Plan: -events: The patient continues to have abdominal pain and some diarrhea. Denies any hematochezia. Patient also reports having episode of nausea yesterday evening. Reviewed labs today, unremarkable. Given her persistent pain, continue current plan of care and reassess for discharge in a.m. -continue antibiotic therapy with Cipro and Flagyl -pain management: Increase [place] to 7.5/325 q.4 hours -repeat labs in a.m. -reassess for discharge in a.m. -continue mechanical soft diet Total time spent with patient discussing and formulating plan of care: 35 minutes. This medical document was created using an electronic medical record system with [employer] dictation system. Although this document has been carefully reviewed, there may still be some phonetic and typographical errors. These areas are purely typographical due to imperfections of the software programs, and do not reflect any compromise in the patient's medical care. Plan discussed with: Patient, Other (RN) My Orders Orders - KYLE FAN NP Procedure Category Date Status Time Sodium Chloride 0.9% PHA 12/30/24 In Process 14:15 Hydrocodone-Acet PHA 12/30/24 In Process 7.5/325mg Tab ([place] 14:15 Mechanical Soft Diet DIET 12/30/24 Transmitted Dinner Temazepam (Restoril) PHA 12/31/24 Logged 10:30 Date of Service: Dec 31, 2024 Billing Provider: KYLE FAN NP Common Visit Codes: [id number] INP/OBS CARE(HIGH) KYLE FAN NP Dec 31, 2024 10:33
[2024-12-31] MEDS: ACETAMINOPHEN 325 MG TAB PO PRN (21:14)
[2024-12-31] MEDS: TEMAZEPAM 15 MG CAP PO PRN (22:11)
[2025-01-01 01:00] VITALS: BP 93/52; PULSE 88; RESP 18; TEMP 98; O2SAT 100
[2025-01-01 05:00] VITALS: BP 118/77; PULSE 75; RESP 16; O2SAT 97
[2025-01-01 08:15] VITALS: PULSE 70; RESP 19; O2SAT 98
[2025-01-01 08:53] VITALS: BP 100/68; PULSE 70; RESP 19; TEMP 98.9; O2SAT 95
[2025-01-01 13:00] VITALS: BP 110/75; PULSE 84; RESP 20; TEMP 98.1; O2SAT 96
[2025-01-01] MEDS ORDERED: HYDR-4902 PO (14:28)
[2025-01-01] MEDS ORDERED: METR-344 PO (14:28)
[2025-01-01] MEDS ORDERED: LEVO500T91 PO (14:28)
--- NOTE | 2025-01-01 14:32 | DVHDS2 ---
Discharge Summary Date of Admission Dec 27, 2024 at 22:02 Date of Discharge: Jan 01, 2025 Admitting Diagnosis Acute diverticulitis Labs/Diagnostic Data: Laboratory Results Test 12/31/24 05:19 12/28/24 05:29 12/27/24 15:02 12/27/24 15:00 White Blood Count 4.5 10^3/uL (4.4-10.8) Red Blood Count 4.01 10^6/uL (4.0-5.20) Hemoglobin 11.2 g/dL (12.2-16.2) Hematocrit 32.0 % (36.0-46.0) Mean Corpuscular Volume 79.9 fL (80.0-100.0) Mean Corpuscular Hemoglobin 28.1 pg (28.0-32.0) Mean Corpuscular Hemoglobin Concent 35.1 g/dL (32.0-36.0) Red Cell Distribution Width 13.2 % (11.8-14.3) Platelet Count 228 10^3/uL (140-450) Mean Platelet Volume 7.6 fL (6.9-10.8) Neutrophils (%) (Auto) 43.5 % (37.0-80.0) Lymphocytes (%) (Auto) 41.7 % (10.0-50.0) Monocytes (%) (Auto) 9.1 % (0.0-12.0) Eosinophils (%) (Auto) 5.4 % (0.0-7.0) Basophils (%) (Auto) 0.3 % (0.0-2.0) Neutrophils # (Auto) 2.0 10 ^3/uL (1.6-8.6) Lymphocytes # (Auto) 1.9 10 ^3/uL (0.4-5.4) Monocytes # (Auto) 0.4 10 ^3/uL (0-1.3) Eosinophils # (Auto) 0.2 10 ^3/uL (0-0.8) Basophils # (Auto) 0 10 ^3/uL (0-0.2) Nucleated Red Blood Cells 0.1 % Sodium Level 143 mmol/L (136-145) Potassium Level 3.7 mmol/L (3.5-5.1) Chloride Level 108 mmol/L (98-107) Carbon Dioxide Level 24 mmol/L (20-31) Anion Gap 11 (5-15) Blood Urea Nitrogen 14 mg/dL (9-23) Creatinine 0.77 mg/dL (0.550-1.02) Glomerular Filtration Rate Calc 101 mL/min (>90) BUN/Creatinine Ratio 18.2 (10.0-20.0) Serum Glucose 83 mg/dL (74-106) Calcium Level 9.4 mg/dL (8.7-10.4) Hemoglobin A1c 5.0 % A1C (<5.7) Triglycerides Level 115 mg/dL (< 150) Cholesterol Level 200 mg/dL (< 200) LDL Cholesterol 136 mg/dL (< 100) HDL Cholesterol 45 mg/dL (40-59) Beta HCG, Quantitative 0.5 mIU/mL (1.5-4.2) Urine Color Yellow (Yellow) Urine Clarity Turbid (Clear) Urine pH 5.5 (5.0-9.0) Urine Specific [place] 1.028 (1.001-1.035) Urine Protein Negative (Negative) Urine Ketones Negative (Negative) Urine Blood 2+ /uL (Negative) Urine Nitrite Negative (Negative) Urine Bilirubin Negative (Negative) Urine Urobilinogen Normal mg/dL (Negative) Urine Leukocyte Esterase 2+ /uL (Negative) Urine RBC 4 /hpf (0 - 4) Urine Microscopic WBC 11 /HPF (0-5) Urine Squamous Epithelial Cells Few /hpf (<5) Urine Bacteria Few /hpf (None Seen) Urine Mucus Few (None Seen) Urine Glucose Normal mg/dL (Normal) Urine Test Negative Urine Opiates Screen Neg (NEGATIVE) Urine Fentanyl Screen Neg (NEGATIVE) Urine Barbiturates Screen Neg (NEGATIVE) Urine Phencyclidine Screen Neg (NEGATIVE) Urine Amphetamines Screen Neg (NEGATIVE) Urine Benzodiazepines Screen Neg (NEGATIVE) Urine Cocaine Screen Neg (NEGATIVE) Urine Cannabinoids Screen Neg (NEGATIVE) Other Laboratory Tests 12/31/24 05:19 12/28/24 05:29 Brief Hx & Hospital Course: istory of Present Illness This is a 39-year-old female past medical history of asthma, GERD, uterine fibroids who presented to the ED with severe left lower quadrant abdominal tenderness. Patient stated the pain started three weeks ago but was tolerable in intensity and she thought that it was related to the menstrual periods. The patient stated that the pain progressively got worse associated with fever, nausea and vomiting with alternating diarrhea and constipation prompted the visit to the ED. the patient described the pain as a sharp stabbing pain located in the left lower quadrant rated as a 10/10 on the pain scale that occasionally radiates to the right lower quadrant. The patient denies chest pain, shortness of breath, lower extremity swelling, headache or any other symptoms. Upon admission, initial CBC and CMP was grossly unremarkable but urinalysis came back positive suggesting UTI. Beta human chorionic gonadotropin test came back negative. A CT scan of the abdomen showed findings consistent with acute diverticulitis of the mid descending colon with no fluid collection or free air. We will start the patient on IV ciprofloxacin and metronidazole as well as IV fluids and placing the patient NPO. We will admit the patient for further assessment and management. Course of hospitalization: Patient was started on IV antibiotic therapy with ciprofloxacin and Flagyl. Patient continued to have persistent abdominal pain not tolerating oral intake over the 1st two days. Patient's diet has been advanced as now tolerating mechanical soft diet. Continues to have some abdominal pain, but reports improvement. Repeat labs revealed no leukocytosis, basically noncontributory. Patient has been afebrile with normal vital signs. Patient will be discharged home as instructed to follow up with the discharge Clinic in one week. She will be continued on antibiotic therapy with Levaquin 500 mg p.o. daily as well as Flagyl 500 mg p.o. t.i.d. for additional five days. Patient was instructed to follow up with her PCP to address her uterine fibroids. All questions answered. Physical exam General: Alert and Oriented x3. No acute distress. Well-nourished. Eyes: EOMI. Anicteric. HENT: Moist mucous membranes. Lungs: Clear to auscultation bilaterally. No accessory muscle use. Cardiovascular: Regular rate and rhythm. No murmur. No JVD. Abdomen: Soft, non-tender and non-distended. No palpable masses. Extremities: No edema. Non-tender. Skin: No rashes or lesions. Warm. Neurologic: No focal neurological deficits. CN II-XII grossly intact, but not individually tested. Psychiatric: Cooperative. Appropriate mood and affect. Total time spent with patient discussing and formulating plan of care: 35 minutes. This medical document was created using an electronic medical record system with [employer] dictation system. Although this document has been carefully reviewed, there may still be some phonetic and typographical errors. These areas are purely typographical due to imperfections of the software programs, and do not reflect any compromise in the patient's medical care. Condition at Discharge: Fair Final Diagnosis/Problems List Acute diverticulitis -uterine fibroids -UTI -GERD -anemia Discharge Disposition: Home Discharge Instruct/Medications Diet: Regular Activity: No Restrictions, As Tolerated Follow Up/Referral: Follow up with PCP in 1-2 weeks or discharge Clinic in one week Medications: Levaquin 500 mg p.o. daily x5 days Flagyl 500 mg p.o. q.8 hours x5 days [place] 5/325 q.8 hours as needed for [id number] pain 36 Discharge Statement: "Patient was advised to return to the ER or call 911 if any headaches, dizziness, shortness of breath, chest pain, abdominal pain, bleeding, fevers, or worsening of medical condition. Patient was counseled about treatment plan, medications, possible side effects, patientverbalized understanding. All questions were answered to the best of my ability. This discharge took greater then 30 minutes in planning, reviewing documentation, counseling the patient, and discussing with other team members." ASSESSMENT ASSESSMENT Assessment Acute diverticulitis Date of Service: Jan 01, 2025 Billing Provider: KYLE FAN NP Common Visit Codes: [id number] DISCH DAY >30min KYLE FAN NP Jan 01, 2025 14:32
[2025-01-01 15:45] VITALS: BP 105/68; PULSE 72; RESP 18; TEMP 98.1; O2SAT 96
== END 2025-01-01 19:30 | disposition home or self-care (01) | DRG 244 ==
LOC: ER 14:14 → EDSEX 14:14 → OVERFLOW 22:02 → EAST 22:07
PROVIDERS: ADMIT Nurse Practitioner Acute Care; ATTEND Nurse Practitioner Acute Care
DX: K57.32 Diverticulitis of large intestine without perforation or abscess without bleeding (principal); I95.9 Hypotension, unspecified; D25.9 Leiomyoma of uterus, unspecified; D64.9 Anemia, unspecified; K21.9 Gastro-esophageal reflux disease without esophagitis; N39.0 Urinary tract infection, site not specified; N83.201 Unspecified ovarian cyst, right side; N83.202 Unspecified ovarian cyst, left side; J45.909 Unspecified asthma, uncomplicated; Z79.899 Other long term (current) drug therapy
CPT/HCPCS: 36415; 74176; 76830; 76856; 80048; 80061; 80307; 81001; 81025; 83036; 84702; 85014; 85018; 85025; 96361; 96374; 96375; G0378; J1885; J2405; J2470; J3490